=== PATIENT | female | born 1985 | race Caucasian/White ===

== ENCOUNTER 2021-06-24 22:29 | Inpatient (IN) | payer SELFPAY ==
[2021-06-24 22:57] VITALS: BMI 30.7
[2021-06-24] MEDS ORDERED: hydrALAZINE 20 MG/ML VIAL SLOW IVP PRN (23:27)
[2021-06-25] MEDS ORDERED: Acetaminophen 500 MG TAB PO SCH (00:30)
[2021-06-25] MEDS ORDERED: Ondansetron PF 4 MG/2 ML Vial IVP PRN (00:43)
[2021-06-25] MEDS ORDERED: Butorphanol Tartrate 1 MG/ML VIAL SLOW IVP PRN (00:43)
[2021-06-25] MEDS ORDERED: Lidocaine 1% (PF) 30 ML VIAL SC PRN (00:43)
[2021-06-25] MEDS ORDERED: hydrALAZINE 20 MG/ML VIAL SLOW IVP PRN (00:43)
[2021-06-25] MEDS ORDERED: Promethazine HCl 25 MG/ML VIAL IM PRN ×2 (00:43→10:00)
[2021-06-25] MEDS ORDERED: Ibuprofen 800 MG TAB PO PRN (00:43)
[2021-06-25] MEDS ORDERED: NS w/ Oxytocin 30 units 500 ML IV SCH (00:45)
[2021-06-25] MEDS ORDERED: NS w/ Oxytocin 30 units 500 ML IVPB SCH (00:45)
[2021-06-25] MEDS: Lactated Ringer's 1,000 ML IV SCH ×2 (01:10→09:13)
[2021-06-25] MEDS: Misoprostol 100 MCG TAB VAG SCH ×2 (01:55→10:30)
[2021-06-25 02:14] LABS: Hemoglobin 11.1 g/dL (12.0-15.5); Mean Corpuscular HGB CONC 31.9 g/dL (32.0-36.0); Mean Corpuscular Hemoglobin 26.2 pg (27.0-33.0); Mean Corpuscular Volume 82.3 fl (81.6-98.3); Mean Platelet Volume 11.3 fl (7.4-10.4); Platelet Count 192 10x3/uL (150-450); RBC Distribution Width 19.9 % (11.5-14.5); Red Blood Cell (RBC) Count 4.23 10x6/uL (3.90-5.03); White Blood Cell (WBC) Count 9.5 10x3/uL (3.5-10.5)
[2021-06-25 02:30] LABS: ALT (SGPT) 22 U/L (8-55); AST (SGOT) 25 U/L (5-34); Albumin 2.9 g/dL (3.5-5.0); Alkaline Phosphatase 192 U/L (40-110); Anion Gap 14 mmol/L (10-20); BUN (Urea Nitrogen) 12 mg/dL (7.0-18.7); Bilirubin, Total 0.2 mg/dL (0.2-1.2); Calc. Creatinine Clearance 178 mL/min (70-130); Calcium 8.5 mg/dL (7.8-10.44); Carbon Dioxide 19 mmol/L (22-29); Chloride 107 mmol/L (98-107); Globulin 2.8 g/dL (2.4-3.5); Glucose 100 mg/dL (70-105); Potassium 4.4 mmol/L (3.5-5.1); Protein, Total 5.7 g/dL (6.0-8.3); Sodium 136 mmol/L (136-145)
[2021-06-25 02:50] LABS: Hep B Surf Ag Non-Reactive S/CO (NonReactive); Syphilis Antibody Nonreactive (Nonreactive); Syphilis Antibody Index 0.05 S/CO (<1.00 Non-Reactive)
[2021-06-25 03:10] LABS: HBSAg Index 0.18 S/CO (0-0.99)
[2021-06-25] MEDS ORDERED: Fentanyl 2 mcg/Bup 0.1% Cadd 100 ML ONE (08:19)
[2021-06-25] MEDS ORDERED: Communication Order-Pharmacy FS PRN (10:00)
[2021-06-25] MEDS ORDERED: diphenhydrAMINE 50 MG/ML VIAL IVP PRN (10:00)
[2021-06-25] MEDS ORDERED: Acetaminophen 325 MG TAB PO PRN (10:00)
[2021-06-25] MEDS ORDERED: Lactated Ringer's 500 ML IV PRN (10:00)
[2021-06-25] MEDS ORDERED: ePHEDrine Sulfate 50 MG/10 ML VIAL SLOW IVP PRN (10:00)
[2021-06-25] MEDS ORDERED: Naloxone HCl 0.4 mg/ml Vial IVP PRN ×2 (10:00)
[2021-06-25] MEDS ORDERED: Hydrocerin (Eucerin) Cream 120 gm Jar TOP PRN (10:00)
[2021-06-25] MEDS: Ondansetron PF 4 MG/2 ML Vial IVP PRN ×2 (14:02→20:02)
[2021-06-25] MEDS: Fentanyl 2 mcg/Bupivacaine 0.1% Cassette 100 ML EPIDURAL SCH ×2 (15:30→19:28)
[2021-06-25] MEDS ORDERED: Ondansetron PF 4 MG/2 ML Vial ONE (19:50)
[2021-06-26] MEDS: Fentanyl 2 mcg/Bupivacaine 0.1% Cassette 100 ML EPIDURAL SCH ×5 (00:07→14:33)
[2021-06-26] MEDS: Ondansetron PF 4 MG/2 ML Vial IVP PRN ×2 (02:29→20:00)
[2021-06-26] MEDS ORDERED: Ondansetron PF 4 MG/2 ML Vial ONE ×3 (02:38→13:02)
[2021-06-26] MEDS ORDERED: Misoprostol 200 MCG TAB ONE (12:15)
[2021-06-26] MEDS ORDERED: Tranexamic Acid 1,000 MG/10 ML VIAL ONE (12:15)
[2021-06-26] MEDS ORDERED: Lidocaine 1% (PF) 30 ML VIAL ONE (12:16)
[2021-06-26] MEDS ORDERED: Carboprost 250 MCG/ML AMP ONE (12:16)
[2021-06-26] MEDS ORDERED: hydrALAZINE 20 MG/ML VIAL ONE (13:07)
[2021-06-26] MEDS ORDERED: Ondansetron PF 4 MG/2 ML Vial IVP PRN (14:12)
[2021-06-26] MEDS ORDERED: Lactated Ringer's 1,000 ML IV PRN (14:13)
[2021-06-26] MEDS ORDERED: Dextrose 5%-Lactated Ringers 1,000 ML IV PRN (14:13)
[2021-06-26] MEDS ORDERED: HYDROcodone/Acetaminophen 5/325 mg Tablet PO PRN ×2 (18:17)
[2021-06-26] MEDS ORDERED: Benzocaine-Menthol 82.5 ML CAN TOP PRN (18:17)
[2021-06-26] MEDS ORDERED: Lanolin Ointment 7 GM TUBE TOP PRN (18:17)
[2021-06-26] MEDS ORDERED: diphenhydrAMINE 25 MG CAP PO PRN (18:17)
[2021-06-26] MEDS ORDERED: NS w/ Oxytocin 30 units 500 ML IV SCH (18:17)
[2021-06-26] MEDS ORDERED: Bisacodyl 10 MG SUPP PR PRN (18:17)
[2021-06-26] MEDS ORDERED: hydrALAZINE 20 MG/ML VIAL SLOW IVP PRN (18:17)
[2021-06-26] MEDS ORDERED: Milk Of Magnesia 30 ML UDCUP PO PRN (18:17)
[2021-06-26] MEDS ORDERED: Preparation H Ointment 28 GM TUBE PR PRN (18:17)
[2021-06-26] MEDS: Misoprostol 100 MCG TAB VAG SCH ×3 (18:22→18:24)
[2021-06-26] MEDS: Lactated Ringer's 1,000 ML IV SCH ×2 (18:23→18:24)
[2021-06-26] MEDS ORDERED: Ferrous Sulfate 325 MG TAB PO SCH (19:00)
[2021-06-26] MEDS: Ibuprofen 800 MG TAB PO SCH (21:49)
[2021-06-26] MEDS: Docusate Calcium (SURFAK) 240 MG CAP PO SCH (21:49)
[2021-06-27 05:15] VITALS: TEMP 97.9
[2021-06-27] MEDS: Ibuprofen 800 MG TAB PO SCH ×2 (06:19→14:04)
[2021-06-27] MEDS: Ferrous Sulfate 325 MG TAB PO SCH ×2 (08:00→15:14)
[2021-06-27] MEDS: Docusate Calcium (SURFAK) 240 MG CAP PO SCH (08:19)
[2021-06-27 08:44] VITALS: BP 120/76
[2021-06-27] MEDS ORDERED: Prenatal Vitamin 1 TAB PO SCH (09:00)
[2021-06-27] MEDS: Ondansetron PF 4 MG/2 ML Vial IVP PRN ×2 (09:58→16:42)
[2021-06-27] MEDS ORDERED: Boostrix 0.5 ML (Tdap) VIAL IM ONE (18:17)
== END 2021-06-27 18:54 | disposition home or self-care (01) | DRG 807 ==
LOC: CSHLD/OP 22:29 → CSHLD 06-25 01:36 → CSHPP 06-26 18:03
PROVIDERS: ADMIT Obstetrics & Gynecology; ATTEND Obstetrics & Gynecology
PROC: 10E0XZZ Delivery of Products of Conception, External Approach (ICD-10-PCS; principal; 2021-06-26)
PROC: 0UQMXZZ Repair Vulva, External Approach (ICD-10-PCS; 2021-06-26)
PROC: 10907ZC Drainage of Amniotic Fluid, Therapeutic from Products of Conception, Via Natural or Artificial Opening (ICD-10-PCS; 2021-06-26)
DX: O13.4 Gestational [pregnancy-induced] hypertension without significant proteinuria, complicating childbirth (principal); Z37.0 Single live birth; K21.9 Gastro-esophageal reflux disease without esophagitis; O99.62 Diseases of the digestive system complicating childbirth; Z3A.38 38 weeks gestation of pregnancy; O99.02 Anemia complicating childbirth; D50.9 Iron deficiency anemia, unspecified; O69.81X0 Labor and delivery complicated by cord around neck, without compression, not applicable or unspecified; O66.8 Other specified obstructed labor; O70.0 First degree perineal laceration during delivery
CPT/HCPCS: 36415; 80053; 81003; 85027; 85461; 86780; 86850; 86900; 86901; 87340; 90384; 96372; J0360; J2405; J2590; J7120

== ENCOUNTER 2023-06-28 11:03 | Day surgery (SDC) | payer OTHER, SELFPAY ==
[2023-06-27 15:05] VITALS: BMI 27.7
[2023-06-28 12:06] LABS: Hematocrit 40.8 % (34.9-44.5); Hemoglobin 13.8 g/dL (12.0-15.5); Mean Corpuscular HGB CONC 33.8 g/dL (32.0-36.0); Mean Corpuscular Hemoglobin 27.6 pg (27.0-33.0); Mean Corpuscular Volume 81.6 fl (81.6-98.3); Mean Platelet Volume 9.2 fl (7.4-10.4); Platelet Count 252 10x3/uL (150-450); RBC Distribution Width 12.8 % (11.5-14.5); White Blood Cell (WBC) Count 11.6 10x3/uL (3.5-10.5)
[2023-06-28] MEDS ORDERED: fentaNYL 50 mcg/mL 1 mL Vial ONE (12:45)
[2023-06-28] MEDS ORDERED: Dexamethasone 4 mg/ml Vial ONE (12:45)
[2023-06-28] MEDS ORDERED: Lidocaine 2% PF 5 ML VIAL ONE (12:45)
[2023-06-28] MEDS ORDERED: Ondansetron PF 4 MG/2 ML Vial ONE (12:45)
[2023-06-28] MEDS ORDERED: PROPOFOL 20 ML ONE (12:45)
[2023-06-28] MEDS ORDERED: Midazolam HCl 2 mg/2 ml Vial ONE (12:45)
[2023-06-28] MEDS ORDERED: Meperidine HCl/PF 25 MG/ML VIAL ONE (13:24)
[2023-06-28] MEDS ORDERED: Tranexamic Acid 1,000 MG/10 ML VIAL ONE (13:29)
== END 2023-06-28 15:10 | disposition home or self-care (01) ==
LOC: CSHSDC 11:03
PROVIDERS: ATTEND Obstetrics & Gynecology
PROC: 10D17ZZ Extraction of Products of Conception, Retained, Via Natural or Artificial Opening (ICD-10-PCS; principal; 2023-06-28)
DX: O02.1 Missed abortion (principal); O28.3 Abnormal ultrasonic finding on antenatal screening of mother; O99.891 Other specified diseases and conditions complicating pregnancy; N89.8 Other specified noninflammatory disorders of vagina; Z3A.11 11 weeks gestation of pregnancy
CPT/HCPCS: 85027; 86850; 86870; 86900; 86901; 88305; J1100; J2001; J2175; J2250; J2405; J2704; J3010